=== PATIENT | female | born 1995 | race African-American/Black ===

== ENCOUNTER 2023-05-26 00:27 | Emergency (ER) | payer BC, OTHER ==
[~2023-05-26] VITALS: Ht 162.6 cm; Wt 79.0 kg
[2023-05-26 00:36] VITALS: TEMP 97.7; O2SAT 100
[2023-05-26] MEDS ORDERED: LIDOCAINE HCL/PF 1% 10 MG/ML 5ML VIAL INFIL ONE (01:00)
[2023-05-26] MEDS: TETANUS, DIPHTHERIA, PERTUSSIS VAC/PF 0.5ML (>10YR OLD) IM ONE (03:51)
[2023-05-26] MEDS: BACITRACIN ZINC OINT UDPKT TOP ONE (03:51)
[2023-05-26] MEDS ORDERED: NAPR-1129 MT (04:29)
[2023-05-26] MEDS ORDERED: HYDROCODONE/ACETAMINOPHEN 5/325MG TABLET PO ONE (04:30)
[2023-05-26] MEDS ORDERED: AMOX1TAB16 MT (04:35)
[2023-05-26] MEDS: ONDANSETRON HCL 4MG TABLET PO ONE (05:21)
[2023-05-26] MEDS: MORPHINE SULFATE 10 MG/ML CPJ IM ONE (05:21)
[2023-05-26] MEDS: AMOXICILLIN/POTASSIUM CLAVULANATE 875/125MG TAB PO ONE (05:21)
[2023-05-26 06:18] VITALS: BP 108/66; PULSE 86; RESP 19
== END 2023-05-26 06:21 | disposition home or self-care (01) ==
LOC: ER 00:27
DX: S02.2XXA Fracture of nasal bones, initial encounter for closed fracture (principal); S01.512A Laceration without foreign body of oral cavity, initial encounter; S80.212A Abrasion, left knee, initial encounter; S80.211A Abrasion, right knee, initial encounter; V98.8XXA Other specified transport accidents, initial encounter; Y93.89 Activity, other specified; Y92.89 Other specified places as the place of occurrence of the external cause; Y99.8 Other external cause status
CPT/HCPCS: 70450; 70486; 90715; 12054; 40650; 90471; 96372; 99285; Q0162; J3490; J2270; Z7610